=== PATIENT | female | born 1995 | race Caucasian/White ===

== ENCOUNTER 2019-03-14 06:50 | Inpatient (IN) | payer OTHER, SELFPAY ==
[~2019-03-14] VITALS: Ht 160 cm; Wt 82.3 kg
[2019-03-14] VITALS (29 sets, daily range): BP systolic 96–138; BP diastolic 51–74
[2019-03-14] MEDS ORDERED: LACTATED RINGER'S 1000 ML IV ONE (08:00)
[2019-03-14 08:51] LABS: HEMATOCRIT 41.5 % (36.0-47.0); HEMOGLOBIN 12.8 g/dl (12.0-15.5); MEAN CORPUSCULAR HGB CONC 30.8 g/dl (32.0-36.5); MEAN CORPUSCULAR VOLUME 77.9 fl (80.0-96.0); PLATELET COUNT, AUTOMATED 295 10^3/uL (150-450); RED BLOOD COUNT 5.33 10^6/uL (4.00-5.40)
[2019-03-14] MEDS: LR 1,000 ML IV SCH ×2 (09:00→19:41)
[2019-03-14] MEDS ORDERED: CALCIUM GLUCONATE 1,000 MG in D5W MINI-BAG PLUS 100 ML IV PRN (09:15)
[2019-03-14] MEDS ORDERED: MAG Sulf (L&D) 4 GM/100 ML 4 GM in IV 1 EA IV ONE (09:15)
[2019-03-14] MEDS ORDERED: AMPICILLIN SOD 2 GM in APPROPRIATE DILUENT 20 ML IV ONE (09:15)
[2019-03-14 09:53] LABS: BASO # 0.1 10^3/uL (0.0-0.2); BASO % 0.6 % (0.0-1.0); EOS # 0.4 10^3/uL (0.0-0.5); EOS % 2.3 % (0.0-3.0); LYMPH # 2.7 10^3/uL (1.5-5.0); LYMPH % 17.1 % (24.0-44.0); MONO # 1.1 10^3/uL (0.0-0.8); MONO % 6.8 % (0.0-5.0); NEUTROPHILS # 11.4 10^3/uL (1.5-8.5); NEUTROPHILS % 71.4 % (36.0-66.0)
[2019-03-14 10:05] LABS: AMPHETAMINES URINE REFLEX NEGATIVE (NEGATIVE); BARBITURATES URINE REFLEX NEGATIVE (NEGATIVE); BENZODIAZEPINES URINE REFLEX NEGATIVE (NEGATIVE); CANNABINOIDS URINE REFLEX NEGATIVE (NEGATIVE); COCAINE METABOLITE URINE REFLE NEGATIVE (NEGATIVE); METHADONE URINE REFLEX NEGATIVE (NEGATIVE); OPIATES URINE REFLEX NEGATIVE (NEGATIVE); PHENCYCLIDINE URINE REFLEX NEGATIVE (NEGATIVE)
[2019-03-14] MEDS: BETAMETHASONE SOLUSPAN 6MG/ML INJ 5ML (J0702) IM SCH (10:50)
[2019-03-14] MEDS: MAG Sulf (OBGYN) 20GM/500ML 20,000 MG in IV 1 EA IV SCH ×2 (10:57→21:06)
[2019-03-14] MEDS ORDERED: PRENTAB9 PO (11:52)
[2019-03-14] MEDS: AMPICILLIN SOD 1 GM in APPROPRIATE DILUENT 10 ML IV SCH ×3 (16:26→23:59)
--- NOTE | 2019-03-14 19:59 | HPE ---
DATE OF ADMISSION: 03/14/2019 Janet is a 23-year-old female, 1, para 0 with an EDC of 04/30/2019, EGA 33 weeks gestation. She is receiving care at [facility]. She presented with complaints of contractions every 5-7 minutes and irritability as well as low back pain. Upon evaluation in labor and delivery, her cervix was found to be soft, 1-2 cm dilated. The patient also reported earlier spotting and passing her mucus plug. Her record reviewed. She did have occasional complaints of back pain, but no other complaint. LABORATORIES: Blood type is AB positive, rubella immune, hepatitis negative, HIV negative, GC/chlamydia negative. Her 1 hour sugar testing was 113. GBS status unknown. PHYSICAL EXAMINATION ON ADMISSION: Normal-appearing female in no acute distress. Abdomen: Soft, nontender, nondistended. Gravid. Extremities: No clubbing, cyanosis or edema. Vaginal exam done, 1-2 cm dilated, 60-70% effaced, fetus at -3 station in a vertex position. LABORATORIES: Reviewed. White count is 16. Hemoglobin/hematocrit is 12/41, platelet of 295. Urinalysis was within normal limits. ASSESSMENT: Intrauterine at 33 weeks gestation in early labor. PLAN: Admit the patient to labor and delivery. The patient counseled extensively. Risk and benefit of delivery at this point discussed as well as lung maturity. A decision made to admit the patient. IV fluids hydration. Steroid for lung maturity. Magnesium sulfate to prevent labor for at least 24-48 hours until steroids is on board. Ampicillin started for GBS prophylaxis. Vaginal cultures done and sent. Urine toxicology sent. Neonatology notified of the patient's status. Will continue to monitor. Followup with the ultrasound result.
--- NOTE | 2019-03-14 20:31 | REPVR ---
PROCEDURE INFORMATION: Exam: US First Trimester, Transabdominal Exam date and time: 03/14/2019 8:14 PM Age: 23 years old Clinical indication: Lmp or gestational age (in weeks): 33; Other: Bleeding; ; Additional info: 33w cervical change TECHNIQUE: Imaging protocol: Real-time transabdominal obstetrical ultrasound of the maternal pelvis and a first trimester , less than 14 weeks 0 days, with image documentation. COMPARISON: No relevant prior studies available. FINDINGS: GESTATION: Gestation: Single intrauterine gestation Heart rate: heart rate 144 bpm. Presentation: Fetus is in a vertex position. Placenta: Posterior fundal placenta without evidence of abruption, grade 2 architecture. Amniotic fluid: Amniotic fluid index is 12.1 cm. BIOMETRY: Estimated gestational age: Gestational age based on LMP of 07/24/2018 is 33 weeks 2 days. This corresponds to ultrasound measurements. Estimated weight: Estimated weight 2024 g (33 percentile) Biparietal diameter: BPD 8.2 cm Head circumference: Head circumference 28 cm Abdominal circumference: Abdominal circumference 29 cm Femur length: Femur length 6.3 cm MATERNAL: Uterus: Unremarkable. Cervix: Unremarkable. Right adnexa: Unremarkable. Left adnexa: Unremarkable. Intraperitoneal: No intraperitoneal free fluid. IMPRESSION: Estimated weight is below the 3rd 50th percentile in this 33 week 2 day gestational age fetus. Continued interval follow-up to assess growth as clinically directed is suggested. Electronically signed by: Oneil Boyer On 03/14/2019 20:30:37 PM
[2019-03-15] VITALS (7 sets, daily range): BP systolic 90–125; BP diastolic 48–66
[2019-03-15] MEDS ORDERED: zolPIDEM TARTRATE 5 MG TAB PO ONE (00:45)
[2019-03-15] MEDS: AMPICILLIN SOD 1 GM in APPROPRIATE DILUENT 10 ML IV SCH ×3 (04:02→12:44)
[2019-03-15] MEDS: MAG Sulf (OBGYN) 20GM/500ML 20,000 MG in IV 1 EA IV SCH (07:15)
[2019-03-15 09:25] LABS: HEMATOCRIT 34.6 % (36.0-47.0); HEMOGLOBIN 11.2 g/dl (12.0-15.5); MEAN CORPUSCULAR HEMOGLOBIN 24.5 pg (27.0-33.0); MEAN CORPUSCULAR HGB CONC 32.4 g/dl (32.0-36.5); MEAN CORPUSCULAR VOLUME 75.5 fl (80.0-96.0); PLATELET COUNT, AUTOMATED 325 10^3/uL (150-450); RED BLOOD COUNT 4.58 10^6/uL (4.00-5.40); WHITE BLOOD COUNT 18.6 10^3/uL (4.0-10.0)
[2019-03-15] MEDS: BETAMETHASONE SOLUSPAN 6MG/ML INJ 5ML (J0702) IM SCH (10:41)
--- NOTE | 2019-03-16 11:24 | DSES ---
DATE OF ADMISSION: 03/14/2019 DATE OF DISCHARGE: 03/15/2019 FINAL DIAGNOSES: 1. Intrauterine at 33-1/7 weeks of gestation. 2. labor. 3. Status post two doses of steroid. CONDITION UPON DISCHARGE: Stable. FOLLOWUP APPOINTMENTS: The patient is to followup at [facility] as scheduled on Monday. She is further instructed to call if there is any regular contractions, bleeding, rupture of membranes or decreased movement. The risk of ongoing labor and actual labor discussed with the patient. She is instructed on modified bedrest and to avoid intercourse. BRIEF HISTORY: Janet is a 23-year-old female, 1, para 0, who presented at that 33 weeks gestation with complaints of contractions. She was found to be in labor. She underwent the steroid for lung maturity. She was also placed on magnesium sulfate for over 24 hours. After the discontinuing the magnesium sulfate post steroid use, her contractions was found to be none and she was feeling comfortable. Her cervical exam was essentially unchanged. Given that the patient wanted to go home, at this point, a decision was made to discharge her home with the above-noted instruction. The potential risk of labor discussed with the patient. She is to followup with [facility] on Monday.
== END 2019-03-15 16:20 | disposition home or self-care (01) | DRG 563 ==
LOC: M LDO 06:50 → M LDI 09:16
PROVIDERS: ADMIT Obstetrics & Gynecology; ATTEND Obstetrics & Gynecology
DX: O60.03 Preterm labor without delivery, third trimester (principal); Z3A.33 33 weeks gestation of pregnancy

== ENCOUNTER 2019-03-17 04:52 | Inpatient (IN) | payer MEDICAID, SELFPAY ==
[2019-03-17] VITALS (7 sets, daily range): BP systolic 116–157; BP diastolic 56–86
[~2019-03-17] VITALS: Ht 160 cm; Wt 82.9 kg
[~2019-03-17 04:52] MED LIST: PRENTAB9 PO
[2019-03-17] MEDS ORDERED: OXYTOCIN 30 UNITS IN 0.9% NaCl 500ML IV BAG (J2590) As Ordered ONE (05:18)
[2019-03-17 05:33] LABS: HEMATOCRIT 37.6 % (36.0-47.0); HEMOGLOBIN 11.6 g/dl (12.0-15.5); MEAN CORPUSCULAR HEMOGLOBIN 23.4 pg (27.0-33.0); MEAN CORPUSCULAR HGB CONC 30.9 g/dl (32.0-36.5); PLATELET COUNT, AUTOMATED 336 10^3/uL (150-450); RED BLOOD COUNT 4.95 10^6/uL (4.00-5.40); WHITE BLOOD COUNT 18.2 10^3/uL (4.0-10.0)
[2019-03-17] MEDS ORDERED: RHOGAM 300 MCG (1500 IU) INJ (J2790) IM SCH (06:30)
[2019-03-17] MEDS ORDERED: DIBUCAINE 1% OINTMENT 30GM TOP PRN (06:30)
[2019-03-17] MEDS ORDERED: OXYTOCIN DRIP 30 UNITS in IV 1 EA IV ONE (06:30)
[2019-03-17] MEDS ORDERED: DOCUSATE SODIUM 100 MG CAP PO PRN (06:30)
[2019-03-17] MEDS ORDERED: MEASLES,MUMPS,RUBELLA VACCINE INJ (MMR-II) (90707) SC SCH (06:30)
[2019-03-17] MEDS ORDERED: ONDANSETRON 4MG/2ML VIAL (J2405) IV PRN (06:30)
[2019-03-17] MEDS ORDERED: METHYLERGONOVINE MALEATE 0.2 MG TAB PO PRN (06:30)
[2019-03-17] MEDS ORDERED: ACETAMINOPHEN 500 MG TAB PO PRN (06:30)
[2019-03-17] MEDS ORDERED: IBUPROFEN 800 MG TAB PO PRN (06:30)
[2019-03-17] MEDS ORDERED: ACETAMINOPHEN TAB 650MG DOSE (2X325MG) PO PRN (06:30)
[2019-03-17] MEDS ORDERED: IBUPROFEN 600 MG TAB PO PRN (06:30)
[2019-03-17] MEDS: PRENATAL VITAMINS CHEWABLE TABLET PO SCH (08:00)
--- NOTE | 2019-03-17 13:01 | HPE ---
DATE OF ADMISSION: 03/17/2019 HISTORY: A 23-year-old G1, P0 female at 33-5/7 weeks gestation, with an estimated date of confinement (EDC) of 04/30/2019 presents with variant contractions every two minutes for the last several hours. She had a small amount of vaginal bleeding. She is uncertain if she is leaking fluid. She does experience pelvic pressure, like she had to push. She had to drive in from [place], [place]. Her care has been through [facility]. COURSE: Patient's care has been through [facility]. She is admitted on 03/14/2019 for contractions. She was given steroids and magnesium sulfate, watched her 24 hours. Her contractions ceased and she was sent home. MEDICAL HISTORY: Noncontributory. SURGICAL HISTORY: Noncontributory. ALLERGIES: None. SOCIAL HISTORY: Patient lives in [place]. Father of the baby is involved. She denies cigarettes, alcohol or drug use. PHYSICAL EXAMINATION: Blood pressure 124/74, pulse 84. She appears uncomfortable. HEAD EXAM: Normal. LUNGS: Clear. HEART: Regular rate and rhythm. ABDOMEN: Nontender and gravid. HEART TONES: Category 1. STERILE VAGINAL EXAM: 9 cm dilated, 100% effaced, -1, bulging membranes intact. Contractions continue 3 minutes. EXTREMITIES: Nontender. LABORATORIES: Blood type AB positive. Rubella immune. HIV negative. Group B Streptococcus (GBS) negative. ASSESSMENT: A 23-year-old G1, P0 female, 33-5/7 weeks gestation in active labor. PLAN: Patient is admitted on 03/17/2019. Anticipate vaginal delivery. Neonatology will be notified.
[2019-03-18 06:00] VITALS: BP 121/57
[2019-03-18] MEDS: PRENATAL VITAMINS CHEWABLE TABLET PO SCH (08:38)
[2019-03-18 18:24] VITALS: BP 128/62
--- NOTE | 2019-03-18 19:35 | DN ---
DATE OF DELIVERY: 03/17/2019 PREDELIVERY DIAGNOSIS: 33-5/7 weeks gestation, active labor. POSTDELIVERY DIAGNOSIS: Delivered. PROCEDURE: Spontaneous vaginal delivery. BOAT OPERATOR: Chavo Graham MD NUCLEAR WASTE PROCESS OPERATOR: Karin Dumas DO ANESTHESIA: None. ESTIMATED BLOOD LOSS: 300 mL. FINDINGS: 4 pound 6 ounce female . scores 8 and 9. DELIVERY SUMMARY: After a 10 minute second stage, the patient had spontaneous delivery of a 4 pound 6 ounce female infant, scores 8 and 9 with no delivery anesthesia. There was no nuchal cord. The shoulders delivered with ease. The cord was doubly clamped and cut. The infant was handed off to the awaiting nurses. The placenta was expressed. The uterus was cleared of clots and debris. The patient received IV Pitocin immediately after delivery of the placenta. There were no vaginal lacerations present. Sponge counts were correct.
[2019-03-19 05:29] VITALS: BP 127/65
[2019-03-19] MEDS: PRENATAL VITAMINS CHEWABLE TABLET PO SCH (07:37)
[2019-03-19] MEDS ORDERED: IBUP-1022 PO (08:42)
== END 2019-03-19 13:58 | disposition home or self-care (01) | DRG 560 ==
LOC: M LDO 04:52 → M LDI 05:17 → M OBS 08:25
PROVIDERS: ADMIT Specialist; ATTEND Specialist
PROC: 10E0XZZ Delivery of Products of Conception, External Approach (ICD-10-PCS; principal; 2019-03-17)
DX: O60.14X0 Preterm labor third trimester with preterm delivery third trimester, not applicable or unspecified (principal); Z3A.33 33 weeks gestation of pregnancy; Z37.0 Single live birth